=== PATIENT | female | born 1990 | race African-American/Black ===

== ENCOUNTER 2018-08-11 15:28 | Emergency (ER) | payer OTHER ==
[2018-08-11 15:38] VITALS: BMI 26.6
--- NOTE | 2018-08-11 16:29 | PDOC ---
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 She has difficulty sitting for long periods of time She has mild lower back pain No bowel or bladder incontinence No fevers or chills No direct trauma, no heavy lifting Pt was seen at an urgent care who referred her to a hospital for duplex because pt has severe leg pain, she may have noted swelling yesterday, has a complaint of chest pain and also shortness of breath She was unable to continue to wait in the outside hospital and therefore left prior to assessment She presents today with the above listed complaints AND congestion, rhinorrhea - Physicial Exam PE: 08/11/18 17:42 GENERAL: The patient is in no acute distress, pt appears to be in pain. HEAD: Normal with no signs of trauma. EYES: PERRLA, EOMI, sclera anicteric, conjunctiva clear. ENT: Ears normal, nares patent, oropharynx clear without exudates. Moist mucous membranes. NECK: Normal range of motion, supple LUNGS: Breath sounds equal, clear to auscultation bilaterally. No wheezes, and no crackles. HEART: Tachycardiac, regular, no murmur ABDOMEN: Soft, nontender, normoactive bowel sounds. EXTREMITIES: Left buttock pain, pt is posterior thigh and calf is tender to palpation, she is unable to lay on her left side Foot warm, 2+ DP, 2+ PT Sensation intact. NEUROLOGICAL: Cranial nerves II through XII grossly intact. Normal speech. No focal neurological deficits. MUSCULOSKELETAL: Back non-tender to palpation SKIN: Warm, Dry, normal turgor, no rashes or lesions noted. - Medical Decision Making 08/11/18 17:45 27 yo F presenting with a complaint of left leg pain She is also notably tachycardiac and reporting shortness of breath Pt leg pain seems most consistent with Sciatica however, she reported swelling that may indicate DVT Doubt fracture given no trauma Doubt arterial thrombus given warm foot, palpable pulse Doubt rhabdo as pt muscle compartments are soft, not firm Laboratory Tests 08/11/18 08/11/18 08/11/18 16:56 16:56 16:56 WBC 6.4 Hgb 13.6 Hct 41.9 Plt Count 181 D-Dimer < 200 BUN 11 Creatinine 0.9 Serum , Qual 08/11/18 16:56 WBC Hgb Hct Plt Count D-Dimer BUN Creatinine Serum , Qual Negative 08/11/18 17:47 Duplex pending
--- NOTE | 2018-08-11 16:35 | PDOC ---
History of Present Illness - General Chief Complaint: Shortness of Breath Stated Complaint: PCP SENT Time Seen by Provider: 08/11/18 15:57 History Source: Patient Exam Limitations: No Limitations - History of Present Illness Initial Comments: 08/11/18 17:31 PMD: Arie Past History - Past Medical History Allergies/Adverse Reactions: Allergies Allergy/AdvReac Type Severity Reaction Status Date / Time No Known Allergies Allergy Verified 08/11/18 15:32 Home Medications: Ambulatory Orders Ibuprofen 600 mg PO Q6H #28 tablet 08/11/18 Methocarbamol [Robaxin -] 500 mg PO BID #14 tablet 08/11/18 COPD: No - Suicide/Smoking/Psychosocial Hx Smoking History: Never smoked Have you smoked in the past 12 months: No Number of Cigarettes Smoked Daily: 6 Information on smoking cessation initiated: Yes Hx Alcohol Use: No Drug/Substance Use Hx: No *Physical Exam - Vital Signs Last Vital Signs Temp Pulse Resp BP Pulse Ox 98.6 F 113 H 20 129/82 100 08/11/18 15:35 08/11/18 15:35 08/11/18 15:35 08/11/18 15:35 08/11/18 15:35 - Physical Exam HEENT: positive: Other (R ear canal erythema) Respiratory/Chest: positive: Rhonchi Musculoskeletal: positive: Other (positive straight leg raise) Extremity: positive: Calf Tenderness (L calf) ED Treatment Course - LABORATORY CBC & Chemistry Diagram: 08/11/18 16:56 08/11/18 16:56 - RADIOLOGY Radiology Studies Ordered: Category Date Time Status DUPLEX VASCUL US-1 LEG [US] Stat Ultrasound 08/11/18 16:32 Ordered Medical Decision Making - Medical Decision Making 08/11/18 16:35 URI, dvt, sciatica, cauda equina, pe, pna *DC/Admit/Observation/Transfer Diagnosis at time of Disposition: Sciatica Qualifiers: Laterality: left Qualified Code(s): M54.32 - Sciatica, left side URI (upper respiratory infection) Qualifiers: URI type: unspecified URI Qualified Code(s): J06.9 - Acute upper respiratory infection, unspecified - Discharge Dispostion Disposition: HOME Condition at time of disposition: Good Decision to Admit order: No - Prescriptions Prescriptions: Ibuprofen 600 mg PO Q6H #28 tablet Methocarbamol [Robaxin -] 500 mg PO BID #14 tablet - Referrals Referrals: ON STAFF,NOT [Primary Care Provider] - Rafal Ross MD [Staff Physician] - - Patient Instructions Printed Discharge Instructions: DI for Sciatica, DI for Viral Upper Respiratory Infection -- Adult Additional Instructions: You were seen here for back pain. All of your tests were normal. You most likely have sciatica and a viral upper respiratory tract infection. Stay hydrated, drink fluids! I highly suggest making an appointment with your primary care doctor and a neurologist for further evaluation and management of sciatica. Dr. Ross is a neurologist affiliated with this hospital ( There is prescription for you at [facility], Ibuprofen and Robaxin. Take as directed. Come back to the emergency room if: pain gets worse, you feel more short of breath, you have fever, you are unable to move your legs, you have numbness in the groin area or if any new concerning symptom develops. Thank you - Post Discharge Activity
[2018-08-11 17:04] LABS: BASO % 0.8 % (0-2.0); EOS % 0.8 % (0-4.5); HEMATOCRIT 41.9 % (32.4-45.2); HEMOGLOBIN 13.6 GM/dL (10.7-15.3); LYMPH % 20.7 % (8-40); MCHC 32.5 g/dl (32.0-36.0); MEAN PLT VOLUME 8.6 fl (7.5-11.1); MONO % 11.8 % (3.8-10.2); NEUT % 65.9 % (42.8-82.8); PLATELET COUNT 181 K/MM3 (134-434); RBC 4.87 M/mm3 (3.60-5.2); RDW 14.1 % (11.6-15.6); WHITE BLOOD COUNT 6.4 K/mm3 (4.0-10.0)
[2018-08-11 17:27] LABS: ALBUMIN 3.7 g/dl (3.4-5.0); ALK PHOS 61 U/L (45-117); ANION GAP 8 MMOL/L (8-16); BILIRUBIN,TOTAL 0.2 mg/dL (0.2-1); BLOOD UREA NITROGEN 11 mg/dL (7-18); CALCIUM 8.8 mg/dL (8.5-10.1); CHLORIDE 109 mmol/L (98-107); CO2 23 mmol/L (21-32); CREATININE 0.9 mg/dL (0.55-1.3); GLUCOSE,RANDOM 97 mg/dL (74-106); POTASSIUM 4.1 mmol/L (3.5-5.1); SGOT/AST 17 U/L (15-37); SGPT/ALT 33 U/L (13-61); SODIUM 140 mmol/L (136-145); TOT PROT 7.2 g/dl (6.4-8.2)
[2018-08-11] MEDS ORDERED: KETOROLAC TROMETHAMINE 30 MG/1 ML VIAL IM ONE (17:29)
[2018-08-11] MEDS ORDERED: KETOROLAC TROMETHAMINE 30 MG/1 ML VIAL IVPUSH ONE (18:01)
[2018-08-11] MEDS ORDERED: KETOROLAC TROMETHAMINE 30 MG/1 ML VIAL ONE (18:23)
[2018-08-11 19:01] LABS: URINE APPEARANCE CLEAR; URINE BILIRUBIN NEGATIVE (<2.0 mg/dL); URINE COLOR YELLOW; URINE GLUCOSE (UA) NEGATIVE (NEGATIVE); URINE KETONE NEGATIVE (NEGATIVE); URINE LEUK ESTERASE TRACE (NEGATIVE); URINE NITRITE NEGATIVE (NEGATIVE); URINE PROTEIN 1+ (NEGATIVE); URINE UROBILINOGEN NEGATIVE mg/dL (0.2-1.0)
[2018-08-11 19:11] LABS: EPI CELLS RARE /HPF (FEW); URINE MUCUS MODERATE
[2018-08-11 20:00] VITALS: BP 118/59; PULSE 87; TEMP 97.3
--- NOTE | 2018-08-13 09:46 | EKG ---
Test Reason : Blood Pressure : / mmHG Vent. Rate : 111 BPM Atrial Rate : 111 BPM P-R Int : 132 ms QRS Dur : 072 ms QT Int : 320 ms P-R-T Axes : 063 052 058 degrees QTc Int : 435 ms SINUS TACHYCARDIA OTHERWISE NORMAL ECG NO PREVIOUS ECGS AVAILABLE Confirmed by ANGEL RIVERA MD ([id number]) on 08/13/2018 9:46:39 AM Referred By: Confirmed By:ANGEL RIVERA MD
== END 2018-08-11 19:59 | disposition home or self-care (01) ==
LOC: JER 15:28
PROC: 3E0333Z Introduction of Anti-inflammatory into Peripheral Vein, Percutaneous Approach (ICD-10-PCS; principal; 2018-08-11)
DX: M54.42 Lumbago with sciatica, left side (principal); J06.9 Acute upper respiratory infection, unspecified
CPT/HCPCS: 36415; 71046-TC-FY; 80053; 81003; 81015; 84703; 85025; 85379; 87804; 93005; 93010; 93971-TC; 99283-25